=== PATIENT | male | born 1970 | race Caucasian/White ===

== ENCOUNTER 2018-02-21 17:02 | Emergency (ER) | payer SELFPAY ==
[2018-02-21 17:08] VITALS: BP 167/83; PULSE 62; RESP 18; TEMP 97.9; O2SAT 100
[2018-02-21] MEDS ORDERED: LOVA10TA PO (17:25)
[2018-02-21] MEDS ORDERED: CITA10TA4 PO (17:25)
[2018-02-21] MEDS ORDERED: BENA5TAB PO (17:25)
[2018-02-21] MEDS ORDERED: ONDANSETRON HCL 4 MG/2 ML VIAL IVP ONE (17:30)
[2018-02-21] MEDS ORDERED: KETOROLAC TROMETHAMINE 30 MG/ML (IVP) VIAL IVP ONE (17:30)
--- NOTE | 2018-02-21 17:43 | PD ---
HPI Chief Complaint: Flank/Kidney Pain Time Seen by Provider: 17:15 Travel History International Travel<30 days: No Contact w/Intl Traveler<30days: No Traveled to known affect area: No History of Present Illness HPI 47yo M presents to the ED with c/o right sided lower back pain for 2 hours. States it radiates around to the right side of the abdomen. +Nausea and vomiting. Denies any fever, chest pain, sob, dysuria, hematuria, trauma, IVDA, focal weakness or numbness. Denies history of kidney stones. PFSH Past Medical History Hypertension: Yes ?: Not Past Surgical History Appendectomy: Yes Social History Alcohol Use: No Tobacco Use: No Substance Use: No Allergies-Medications (Allergen,Severity, Reaction): Coded Allergies: codeine (Verified Allergy, Unknown, 02/21/18) Reported Meds & Prescriptions Reported Meds & Active Scripts Active Ibuprofen 800 Mg Tab 800 Mg PO Q8H PRN Flomax (Tamsulosin HCl) 0.4 Mg Cap 0.4 Mg PO HS Reported Citalopram (Citalopram Hydrobromide) 10 Mg Tab 0 PO DAILY Lovastatin 10 Mg Tab 0 PO DAILY Benazepril (Benazepril HCl) 5 Mg Tab 5 Mg PO DAILY Review of Systems Except as stated in HPI: all other systems reviewed are Neg Physical Exam Narrative GENERAL: 47yo M in moderate distress. SKIN: Focused skin assessment warm/dry. HEAD: Atraumatic. Normocephalic. EYES: Pupils equal and round. No scleral icterus. No injection or drainage. ENT: No nasal bleeding or discharge. Mucous membranes pink and moist. NECK: Trachea midline. No JVD. CARDIOVASCULAR: Regular rate and rhythm. No murmur appreciated. RESPIRATORY: No accessory muscle use. Clear to auscultation. Breath sounds equal bilaterally. GASTROINTESTINAL: Abdomen soft, non-tender, nondistended. No rebound tenderness or guarding. BACK: No midline thoracic or lumbar ttp. No CVA tenderness. +TTP right L4-5. MUSCULOSKELETAL: No obvious deformities. No clubbing. No cyanosis. No edema. NEUROLOGICAL: Awake and alert. No obvious cranial nerve deficits. Motor grossly within normal limits. Normal speech. PSYCHIATRIC: Appropriate mood and affect; insight and judgment normal. Data Data Last Documented VS Vital Signs Date Time Temp Pulse Resp B/P (MAP) Pulse Ox O2 Delivery O2 Flow Rate FiO2 02/21/18 17:08 97.9 62 18 167/83 (111) 100 Orders Orders Complete Blood Count With Diff (02/21/18 17:30) Comprehensive Metabolic Panel (02/21/18 17:30) Lipase (02/21/18 17:30) Ct Abd/Pel W/O Iv Contrast (02/21/18 17:30) Ondansetron Inj (Zofran Inj) (02/21/18 17:30) Ketorolac Inj (Toradol Inj) (02/21/18 17:30) Urinalysis - C+S If Indicated (02/21/18 17:31) Ed Discharge Order (02/21/18 19:50) Labs Laboratory Tests Test 02/21/18 17:45 White Blood Count 10.2 TH/MM3 Red Blood Count 4.76 MIL/MM3 Hemoglobin 14.4 GM/DL Hematocrit 41.4 % Mean Corpuscular Volume 87.0 FL Mean Corpuscular Hemoglobin 30.2 PG Mean Corpuscular Hemoglobin Concent 34.7 % Red Cell Distribution Width 13.8 % Platelet Count 172 TH/MM3 Mean Platelet Volume 10.2 FL Neutrophils (%) (Auto) 82.9 % Lymphocytes (%) (Auto) 10.7 % Monocytes (%) (Auto) 4.8 % Eosinophils (%) (Auto) 1.1 % Basophils (%) (Auto) 0.5 % Neutrophils # (Auto) 8.4 TH/MM3 Lymphocytes # (Auto) 1.1 TH/MM3 Monocytes # (Auto) 0.5 TH/MM3 Eosinophils # (Auto) 0.1 TH/MM3 Basophils # (Auto) 0.0 TH/MM3 CBC Comment DIFF FINAL Differential Comment Urine Color LIGHT-YELLOW Urine Turbidity CLOUDY Urine pH 7.5 Urine Specific [place] 1.018 Urine Protein NEG mg/dL Urine Glucose (UA) NEG mg/dL Urine Ketones NEG mg/dL Urine Occult Blood MOD Urine Nitrite NEG Urine Bilirubin NEG Urine Urobilinogen LESS THAN 2.0 MG/DL Urine Leukocyte Esterase NEG Urine RBC 39 /hpf Urine WBC 1 /hpf Urine Amorphous Sediment RARE Microscopic Urinalysis Comment CULT NOT INDICATED Blood Urea Nitrogen 23 MG/DL Creatinine 1.13 MG/DL Random Glucose 137 MG/DL Total Protein 7.5 GM/DL Albumin 4.6 GM/DL Calcium Level 8.7 MG/DL Alkaline Phosphatase 60 U/L Aspartate Amino Transf (AST/SGOT) 19 U/L Alanine Aminotransferase (ALT/SGPT) 29 U/L Total Bilirubin 0.8 MG/DL Sodium Level 142 MEQ/L Potassium Level 3.9 MEQ/L Chloride Level 104 MEQ/L Carbon Dioxide Level 29.1 MEQ/L Anion Gap 9 MEQ/L Estimat Glomerular Filtration Rate 69 ML/MIN Lipase 126 U/L [facility] Medical Decision Making Medical Screen Exam Complete: Yes Emergency Medical Condition: Yes Differential Diagnosis Nephrolithiasis vs. musculoskeletal pain Narrative Course 47yo M with right sided flank pain that started today. Labs reviewed, no leukocytosis. H/H normal. Creatinine normal at 1.13. Lipase normal. UA showed RBC 39. No leukocyte. CT a/p- showed 4mm stone at mid right ureter with mild dilatation in the right collecting system. Pt given toradol and zofran. Reevaluated at bedside and no longer has pain or nausea. He is well appearing. Will have pt follow up with urology and return if symptoms worsen. Pt called the ED for a prescription for a medication for nausea since pt started vomiting. Pt would like me to call in to [facility] . Called in zofran ODT 4mg PO Q12 Hr PRN nausea, #6. Pt advised to go to nearest ED if symptoms do not improve. Diagnosis Primary Impression: Nephrolithiasis Referrals: Alli Concepcion DO call for appointment Patient Instructions: General Instructions Departure Forms: Tests/Procedures Additional Instructions: Please follow up with urology as outpatient. Return to the ED if symptoms worsen. Med/Other Pt SpecificInfo: Prescription(s) given Scripts Ibuprofen (Ibuprofen) 800 Mg Tab 800 MG PO Q8H Y for Pain/Inflammation, #20 TAB 0 Refills Prov: Gena Fuentes DO 02/21/18 Tamsulosin (Flomax) 0.4 Mg Cap 0.4 MG PO HS for Manage Prostate Problems, #14 CAP 0 Refills Prov: Gena Fuentes DO 02/21/18 Disposition: 01 DISCHARGE HOME Condition: Stable Gena Fuentes DO February 21, 2018 17:43
[2018-02-21 18:07] LABS: AUTOMATED NEUTROPHIL # 8.4 TH/MM3 (1.8-7.7); BASOPHIL % 0.5 % (0.0-2.0); EOSINOPHIL # 0.1 TH/MM3 (0-0.4); EOSINOPHIL % 1.1 % (0.0-4.0); HEMATOCRIT 41.4 % (39.0-51.0); HEMOGLOBIN 14.4 GM/DL (13.0-17.0); LYMPH % 10.7 % (9.0-44.0); LYMPHOCYTE # 1.1 TH/MM3 (1.0-4.8); MEAN CORPUSCULAR HEMOGLOBIN 30.2 PG (27.0-34.0); MEAN CORPUSCULAR HGB CONC 34.7 % (32.0-36.0); MEAN PLATELET VOLUME 10.2 FL (7.0-11.0); MONO % 4.8 % (0.0-8.0); MONOCYTE # 0.5 TH/MM3 (0-0.9); NEUT % 82.9 % (16.0-70.0); PLATELET COUNT 172 TH/MM3 (150-450); RED BLOOD COUNT 4.76 MIL/MM3 (4.50-5.90); RED CELL DISTRIBUTION WIDTH 13.8 % (11.6-17.2); WHITE BLOOD COUNT 10.2 TH/MM3 (4.0-11.0)
--- NOTE | 2018-02-21 18:07 | RADRPT ---
EXAM DATE/TIME: 02/21/2018 17:48 [facility] COMPARISON: No previous studies available for comparison. INDICATIONS : Flank pain. ORAL CONTRAST: No oral contrast ingested. RADIATION DOSE: 6.97 CTDIvol (mGy) MEDICAL HISTORY : Hypertension. SURGICAL HISTORY : Appendectomy. ENCOUNTER: Initial ACUITY: 1 day PAIN SCALE: 4/10 LOCATION: Bilateral flank TECHNIQUE: Volumetric scanning of the abdomen and pelvis was performed. Using automated exposure control and ad justment of the mA and/or kV according to patient size, radiation dose was kept as low as reasonably achievable to obtain optimal diagnostic quality images. DICOM format image data is available electro nically for review and comparison. FINDINGS: LOWER LUNGS: The visualized lower lungs are clear. LIVER: Homogeneous density without lesion. There is no dilation of the biliary tree. No calcified gallston es. SPLEEN: Normal size without lesion. PANCREAS: Within normal limits. KIDNEYS: There is mild dilatation of the right pelvicalyceal system and proximal ureter. At the mid right uret er just above the pelvic inlet, there is a 4 mm stone. There is mild perinephric change on the right. There are 2 small 2-3 mm nonobstructing stones seen in the right collecting system. The left kidney is unremarkable. ADRENAL GLANDS: Within normal limits. VASCULAR: There is no aortic aneurysm. BOWEL/MESENTERY: The stomach, small bowel, and colon demonstrate no acute abnormality. There is no free intraperitone al air or fluid. Clips are seen around the cecum likely from a prior appendectomy. ABDOMINAL WALL: Within normal limits. RETROPERITONEUM: There is no lymphadenopathy. BLADDER: No wall thickening or mass. REPRODUCTIVE: Prostatic calcifications are present. INGUINAL: There is no lymphadenopathy or hernia. MUSCULOSKELETAL: There is degenerative change of the lower lumbar spine. CONCLUSION: 1. 4 mm stone at the mid right ureter with mild dilatation the right collecting system. 2. 2 small nonobstructing right renal stones. Jeffrey Tellez MD on February 21, 2018 at 18:00 Board Certified Radiologist. This report was verified electronically.
[2018-02-21 18:21] LABS: ALBUMIN 4.6 GM/DL (3.4-5.0); AST (GOT) 19 U/L (15-37); BICARBONATE 29.1 MEQ/L (21.0-32.0); BLOOD UREA NITROGEN 23 MG/DL (7-18); CALCIUM 8.7 MG/DL (8.5-10.1); CHLORIDE 104 MEQ/L (98-107); CREATININE 1.13 MG/DL (0.60-1.30); GLOMERULAR FILTRATION RATE 69 ML/MIN (>89); GLUCOSE,RANDOM 137 MG/DL (74-106); SODIUM (NA) 142 MEQ/L (136-145)
[2018-02-21 18:22] LABS: ALT (GPT) 29 U/L (12-78)
[2018-02-21 18:24] LABS: ALKALINE PHOSPHATASE 60 U/L (45-117); TOTAL BILIRUBIN ADULT 0.8 MG/DL (0.2-1.0); TOTAL PROTEIN 7.5 GM/DL (6.4-8.2)
[2018-02-21 18:31] LABS: AMORPHOUS SEDIMENT, URINE RARE; BILIRUBIN, URINE NEG (NEG); BLOOD, URINE MOD (NEG); GLUCOSE,URINE NEG (NEG); KETONE, URINE NEG (NEG); NITRITE,URINE NEG (NEG); PH, URINE 7.5 (5.0-8.5); URINE COLOR LIGHT-YELLOW (YELLW/STRAW); URINE LEUKOCYTE ESTERASE NEG (NEG)
[2018-02-21] MEDS ORDERED: IBUP1TAB7 PO (19:49)
[2018-02-21] MEDS ORDERED: TAMS5CAP PO (19:49)
== END 2018-02-21 20:09 | disposition home or self-care (01) ==
LOC: NEPD 17:02
DX: N20.0 Calculus of kidney (principal); I10 Essential (primary) hypertension
CPT/HCPCS: 74176; 80053; 81001; 83690; 85025; 96374; 99284; J1885